=== PATIENT | male | born 1975 | race Caucasian/White ===

== ENCOUNTER 2016-05-21 04:03 | Emergency (ER) | payer SELFPAY ==
[~2016-05-21] VITALS: Ht 157.5 cm; Wt 75.0 kg
[2016-05-21] MEDS ORDERED: KETOROLAC TROMETHAMINE 60 MG/2 ML VIAL IM ONE (04:45)
[2016-05-21] MEDS ORDERED: DEXAMETHASONE SOD PHOS 4 MG/ML 5 ML VIAL IM ONE (04:45)
[2016-05-21 05:19] VITALS: BP 117/73
== END 2016-05-21 05:22 | disposition home or self-care (01) ==
LOC: EMS 04:06
DX: J02.8 Acute pharyngitis due to other specified organisms (principal); B97.89 Other viral agents as the cause of diseases classified elsewhere
CPT/HCPCS: 96372; 99284; J1100; J1885